=== PATIENT | female | born 1990 | race Caucasian/White ===

== ENCOUNTER 2017-10-18 14:26 | Emergency (ER) | payer OTHER ==
[2017-10-18 14:37] VITALS: BP 118/66
[2017-10-18] MEDS ORDERED: ACETAMINOPHEN 325 MG TABLET PO STA (14:40)
[2017-10-18] MEDS ORDERED: cephALEXin 250 MG CAPSULE PO STA (15:04)
--- NOTE | 2017-10-18 15:04 | ED Physician Documentation ---
History of Present Illness - Stated complaint Stated Complaint: FEVER/SORE BREASTS - Chief complaint Chief Complaint: General - Additonal information Additional information: hx from pt healthy 27 y/o f breast feeding an 8 m old infant denies preg R breast pain and redness and a fever visiting from [place] Review of Systems Constitutional: reports: Fever Immunocompromised: denies: Immunocompromised PD PAST MEDICAL HISTORY - Past Medical History Past Medical History: No - Past Surgical History Past Surgical History: No - Present Medications Home Medications: Ambulatory Orders Medication Instructions Recorded Confirmed Cephalexin [Keflex] 500 mg PO Q6H #28 capsule 10/18/17 - Allergies Allergies/Adverse Reactions: Allergies Allergy/AdvReac Type Severity Reaction Status Date / Time No Known Drug Allergies Allergy Verified 10/18/17 14:37 - Social History Does the pt smoke?: No Smoking Status: Never smoker Does the pt drink ETOH?: No Does the pt have substance abuse?: No - Immunizations Immunizations are current?: Yes - POLST Patient has POLST: No PD ED PE NORMAL - Vitals Vital signs reviewed: Yes - Cardiac Cardiac: RRR, No murmur - Respiratory Respiratory: No respiratory distress - Free text exam Free text exam: R breast with erythema and TTP right upper quadrant Results - Vitals Vitals: Vital Signs - 24 hr 10/18/17 14:34 Temperature 38.4 C H Heart Rate 104 H Respiratory 16 Rate Blood Pressure 118/66 O2 Saturation 98 Oxygen O2 Source Room air PD MEDICAL DECISION MAKING - ED course ED course: discussed that pt should continue breast feeding and what to return for Departure - Departure Disposition: 01 Home, Self Care Clinical Impression: Mastitis Condition: Good Instructions: ED Breast Infec Prescriptions: Cephalexin [Keflex] 500 mg PO Q6H #28 capsule Comments: Tylenol and motrin as needed for pain and fever If worse in any way while you are visiting [place], please come back to the ER - we are always open
== END 2017-10-18 15:09 | disposition home or self-care (01) ==
LOC: ED 14:26
DX: N61.0 Mastitis without abscess (principal)
CPT/HCPCS: 99283; A9270